=== PATIENT | male | born 1970 | race Caucasian/White ===

== ENCOUNTER 2019-06-20 04:45 | Emergency (ER) | payer OTHER ==
[~2019-06-20] VITALS: Ht 172.7 cm; Wt 90.7 kg
[2019-06-20] MEDS ORDERED: NORCO 5-325 TA1 EAC1 PO (05:26)
[2019-06-20] MEDS ORDERED: MOBIC15 MG PO (05:26)
[2019-06-20 05:43] VITALS: BP 166/104
== END 2019-06-20 05:44 | disposition home or self-care (01) ==
LOC: ER 04:45
DX: G56.21 Lesion of ulnar nerve, right upper limb (principal)